=== PATIENT | female | born 1980 ===

== ENCOUNTER 2016-06-29 21:07 | Emergency (ER) | payer SELFPAY ==
[~2016-06-29] VITALS: Ht 167.6 cm; Wt 122.5 kg
[2016-06-29 22:15] VITALS: BP 142/72
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
== END 2016-06-29 22:15 | disposition home or self-care (01) ==
LOC: EDBD 21:07 → EMR 22:00
DX: F19.10 Other psychoactive substance abuse, uncomplicated (principal); Z88.6 Allergy status to analgesic agent
CPT/HCPCS: 99282